=== PATIENT | female | born 1980 | race Native Hawaiian/Other Pacific Islander ===

== ENCOUNTER 2018-06-04 09:03 | Outpatient (CLI) | payer OTHER | END 2018-06-04 19:12 | disposition home or self-care (01) | LOC: RESP 09:03 | DX: G40.89 Other seizures (principal) ==

== ENCOUNTER 2018-10-24 07:35 | Emergency (ER) | payer OTHER ==
[~2018-10-24] VITALS: Ht 172.7 cm; Wt 106.6 kg
[2018-10-24 08:43] LABS: PLATELET COUNT 278 K/uL (152-353)
[2018-10-24 08:55] LABS: SODIUM 140 mmol/L (136-145)
[2018-10-24 10:10] VITALS: BP 143/80; TEMP 98.2
== END 2018-10-24 10:20 | disposition home or self-care (01) ==
LOC: ED 07:35
PROVIDERS: Emergency Medicine
DX: R07.89 Other chest pain (principal); F41.8 Other specified anxiety disorders
CPT/HCPCS: 80053; 82550; 82553; 84484; 85027; 93005; 99283

== ENCOUNTER 2019-09-30 14:04 | Outpatient (CLI) | payer BC | END 2019-09-30 22:07 | disposition home or self-care (01) | LOC: MRI 14:04 | DX: R25.2 Cramp and spasm (principal); R26.81 Unsteadiness on feet; R41.3 Other amnesia; G44.89 Other headache syndrome ==

== ENCOUNTER 2019-12-27 13:33 | Outpatient (CLI) | payer BC ==
[2019-12-27 14:04] LABS: PLATELET COUNT 356 K/uL (152-353)
[2019-12-27 14:08] LABS: POTASSIUM 3.9 mmol/L (3.6-5.2)
== END 2019-12-27 23:32 | disposition home or self-care (01) ==
LOC: RAD 13:33
PROVIDERS: Registered Nurse
DX: R06.02 Shortness of breath (principal); R05 Cough; R19.7 Diarrhea, unspecified
CPT/HCPCS: 36415; 80053; 85027

== ENCOUNTER 2020-03-07 08:52 | Emergency (ER) | payer OTHER, BC ==
[~2020-03-07] VITALS: Ht 172.7 cm; Wt 106.6 kg
[2020-03-07 08:58] VITALS: TEMP 99.1
[2020-03-07 09:45] VITALS: BP 126/78
== END 2020-03-07 09:45 | disposition home or self-care (01) ==
LOC: ED 08:52
DX: S60.221A Contusion of right hand, initial encounter (principal); W23.0XXA Caught, crushed, jammed, or pinched between moving objects, initial encounter; Y92.89 Other specified places as the place of occurrence of the external cause
CPT/HCPCS: 99282

== ENCOUNTER 2020-05-21 10:51 | Outpatient (CLI) | payer OTHER, BC | END 2020-05-21 21:56 | disposition home or self-care (01) | LOC: RAD 10:51 | PROVIDERS: ATTEND Registered Nurse | DX: M54.42 Lumbago with sciatica, left side (principal) ==

== ENCOUNTER 2021-12-23 08:53 | Outpatient (CLI) | payer BC | END 2021-12-23 18:55 | disposition home or self-care (01) | LOC: RAD 08:53 | PROVIDERS: ATTEND Registered Nurse | DX: M79.672 Pain in left foot (principal) ==

== ENCOUNTER 2022-11-21 08:02 | Outpatient (CLI) | payer BC | END 2022-11-21 19:08 | disposition home or self-care (01) | LOC: CT 08:02 | PROVIDERS: ATTEND Nurse Practitioner Family | DX: R10.12 Left upper quadrant pain (principal) ==